=== PATIENT | male | born 1955 ===

== ENCOUNTER 2021-12-16 20:41 | Emergency (ER) | payer MEDICARE ==
--- NOTE | 2021-12-16 22:22 | Emergency Department Report ---
HPI - HPI HPI: [place] [address] The patient is a 66-year-old male present with a chief complaint of "I was feeling bad" (spoken in Mosotho). The patient acknowledges he has some substernal chest pain this morning intermittently for the past 6 hours. The patient states the pain will come on when he drinks. Patient denied having shortness of breath nausea or vomiting. The patient states his symptoms have since resolved after lasting 6 hours and is currently asymptomatic <HAYLIE BORJAS - Last Filed: 12/17/21 03:01> <EVANGELIST CALVILLO - Last Filed: 12/17/21 12:42> - General Time Seen by Provider: 12/16/21 22:03 ED Past Medical Hx - Past Medical History Previous Medical History?: No - Surgical History Hx Appendectomy: Yes - Family History Family history: no significant - Social History Smoking Status: Current Every Day Smoker (1/2 pack per) Substance Use Type: None (Denies illicit drug use), Alcohol (5-6 beers daily) <HAYLIE BORJAS - Last Filed: 12/17/21 03:01> <EVANGELIST CALVILLO - Last Filed: 12/17/21 12:42> - Medications Home Medications: Home Medications Medication Instructions Recorded Confirmed Last Taken Type Albuterol Sulfate [Proair 90 mcg IH Q4HR PRN #2 aer.pow.ba 12/17/21 Unknown Rx Respiclick] DOXYCYCLINE Hyclate [Vibramycin] 100 mg PO Q12HR #14 capsule 12/17/21 Unknown Rx Multivitamin with Folic Acid [[facility]vs 400 mcg PO QDAY #30 tablet 12/17/21 Unknown Rx One Daily Essential Tablet] chlordiazePOXIDE [Librium] 25 mg PO Q6H PRN #25 capsule 12/17/21 Unknown Rx ED Review of Systems ROS: Stated complaint: BODY PAIN/BODY ACHES Other details as noted in HPI Constitutional: no symptoms reported Eyes: denies: eye pain ENT: denies: throat pain Respiratory: denies: shortness of breath Cardiovascular: chest pain Endocrine: no symptoms reported Gastrointestinal: denies: nausea, vomiting Genitourinary: denies: dysuria Musculoskeletal: denies: back pain Neurological: denies: headache <HAYLIE BORJAS - Last Filed: 12/17/21 03:01> ROS: Stated complaint: BODY PAIN/BODY ACHES Other details as noted in HPI <EVANGELIST CALVILLO - Last Filed: 12/17/21 12:42> Physical Exam - Physical Exam Physical Exam: GENERAL: The patient is well-developed well-nourished male sleeping on stretcher not appearing to be in acute distress. Easily awakened HEENT: Normocephalic. Atraumatic. Extraocular motions are intact. Patient has moist mucous membranes. NECK: Supple. Trachea midline CHEST/LUNGS: Clear to auscultation. There is no respiratory distress noted. HEART/CARDIOVASCULAR: Regular. There is no tachycardia. There is no gallop rub or murmur. ABDOMEN: Abdomen is soft, nontender. Patient has normal bowel sounds. There is no abdominal distention. SKIN: There is no rash. There is no edema. There is no diaphoresis. NEURO: The patient is awake, alert, and oriented. The patient is cooperative. The patient has no focal neurologic deficits. The patient has normal speech. GCS 15 MUSCULOSKELETAL:There is no evidence of acute injury. <HAYLIE BORJAS - Last Filed: 12/17/21 03:01> - Physical Exam Vital Signs: Vital Signs 12/16/21 23:59 Temperature 97.5 F L Pulse Rate 91 H Respiratory 20 Rate Blood Pressure 122/70 [Right] O2 Sat by Pulse 97 Oximetry <EVANGELIST CALVILLO - Last Filed: 12/17/21 12:42> ED Course Vital Signs 12/16/21 23:59 Temperature 97.5 F L Pulse Rate 91 H Respiratory 20 Rate Blood Pressure 122/70 [Right] O2 Sat by Pulse 97 Oximetry - Reevaluation(s) Reevaluation #1: 12/17/21 08:31 Patient seen and examined. Ambulatory with a steady gait. Clinically sober. Ruled out for PE and myocardial infarction. Discharged with albuterol, antibiotics, multivitamins, as needed Librium, return precautions are reviewed. <RAJINDEREVANGELIST - Last Filed: 12/17/21 12:42> ED Medical Decision Making - Lab Data Result diagrams: 12/16/21 22:20 12/16/21 22:20 Laboratory Tests 12/16/21 12/16/21 12/16/21 22:20 22:20 22:20 WBC 5.9 RBC 4.23 Hgb 15.3 H Hct 45.7 H MCV 108 H MCH 36 H MCHC 34 RDW 14.7 Plt Count 248 Lymph % (Auto) 29.1 [place] % (Auto) 8.7 H Eos % (Auto) 1.8 Baso % (Auto) 1.6 Lymph # (Auto) 1.7 [place] # (Auto) 0.5 Eos # (Auto) 0.1 Baso # (Auto) 0.1 Seg Neutrophils % 58.8 Seg Neutrophils # 3.5 D-Dimer 652.22 H Sodium 141 Potassium 4.0 Chloride 99.2 Carbon Dioxide 24 Anion Gap 22 BUN 6 L Creatinine 0.7 L Estimated GFR > 60 BUN/Creatinine Ratio 9 Glucose 85 Calcium 9.4 Total Creatine Kinase 57 CK-MB (CK-2) 1.3 CK-MB (CK-2) Rel Index 2.2 Troponin T < 0.010 NT-Pro-B Natriuret Pep 131.4 Lipase Plasma/Serum Alcohol 12/16/21 12/16/21 12/17/21 22:20 22:25 01:45 WBC RBC Hgb Hct MCV MCH MCHC RDW Plt Count Lymph % (Auto) [place] % (Auto) Eos % (Auto) Baso % (Auto) Lymph # (Auto) [place] # (Auto) Eos # (Auto) Baso # (Auto) Seg Neutrophils % Seg Neutrophils # D-Dimer Sodium Potassium Chloride Carbon Dioxide Anion Gap BUN Creatinine Estimated GFR BUN/Creatinine Ratio Glucose Calcium Total Creatine Kinase CK-MB (CK-2) CK-MB (CK-2) Rel Index Troponin T < 0.010 NT-Pro-B Natriuret Pep Lipase 56 Plasma/Serum Alcohol 0.31 H - Radiology Data Radiology results: report reviewed (CT chest), image reviewed (CT chest) [address] [address] Cat Scan Report Signed Patient: ARIEL NGUYEN MR#: [id number] 3 : 1955 Acct:[id number] Age/Sex: 66 / M ADM Date: 12/16/21 Loc: ED Attending Dr: Ordering Physician: HAYLIE BORJAS MD Date of Service: 12/17/21 Procedure(s): CT angio chest Accession Number(s): [id number] cc: HAYLIE BORJAS MD CT angio chest INDICATION / CLINICAL INFORMATION: Substernal chest pain x 6 hours. TECHNIQUE: Axial CT images were obtained through the chest after injection of 100 cc of Omnipaque 350 IV contrast. 3 plane MIP and/or 3D reconstructions were produced. All CT scans at this location are performed using CT dose reduction for ALARA by means of automated exposure control. COMPARISON: None available. FINDINGS: PULMONARY ARTERIES: No central or segmental pulmonary embolus. THORACIC AORTA: Mild atherosclerotic calcification without acute abnormality. HEART: No significant abnormality. CORONARY ARTERY CALCIFICATION: No significant calcification. LYMPHADENOPATHY: No significant thoracic lymphadenopathy. LUNGS/PLEURA: Mild scattered bronchial wall thickening. Mild scattered tree-in-bud opacities within the medial right upper lobe, right middle lobe, and right lower lobe. Left lung is clear. There is mild/moderate emphysema. No pleural effusion or pneumothorax. OTHER FINDINGS: Small hiatal hernia. UPPER ABDOMEN: Hepatic steatosis. No acute findings in the upper abdomen. SKELETAL SYSTEM: No acute osseous findings. IMPRESSION: 1. No evidence of pulmonary embolism. 2. Mild scattered bronchial wall thickening with scattered tree-in-bud opacities throughout the right lung. Findings are most consistent with acute lower airway disease/bronchitis. No focal consolidative pneumonia. 3. Other incidental findings as above. Signer Name: Champ Do MD Signed: 12/17/2021 1:00 AM Workstation Name: [id number] Transcribed By: Dictated By: CHAMP DO MD Electronically Authenticated By: CHAMP DO MD Signed Date/Time: 12/17/21 0100 DD/ 0056 TD/TT: - Differential Diagnosis GERD, anxiety, ACS, PE, pericarditis, pancreatitis <HAYLIE BORJAS - Last Filed: 12/17/21 03:01> - Lab Data Result diagrams: 12/16/21 22:20 12/16/21 22:20 - EKG Data -: EKG Interpreted by Tn EKG shows normal: sinus rhythm Rate: normal - EKG Data When compared to previous EKG there are: previous EKG unavailable 12/17/21 12:41 The EKG is interpreted at 12: 32 Sinus rhythm, 92 bpm. Normal axis, normal P wave axis, minimal motion artifact, QTC 4 7 3 ms. Abnormal EKG. Not a STEMI <EVANGELIST CALVILLO - Last Filed: 12/17/21 12:42> Critical care attestation.: If time is entered above; I have spent that time in minutes in the direct care of this critically ill patient, excluding procedure time. <HAYLIE BORJAS - Last Filed: 12/17/21 03:01> Critical care attestation.: If time is entered above; I have spent that time in minutes in the direct care of this critically ill patient, excluding procedure time. <EVANGELIST CALVILLO - Last Filed: 12/17/21 12:42> ED Disposition <LE BORJASKE Selene - Last Filed: 12/17/21 03:01> Is pt being admited?: No Does the pt Need Aspirin: No <EVANGELIST CALVILLO - Last Filed: 12/17/21 12:42> Clinical Impression: Atypical chest pain, Alcohol intoxication Disposition: 01 HOME / SELF CARE / HOMELESS Condition: Good Instructions: Nonspecific Chest Pain, Adult Additional Instructions: Avoid consumption of alcohol, tobacco and smoke products. Patient may take [id number] Tylenol, ibuprofen, Protonix or Pepcid as needed for nonspecific chest pain. Take the antibiotics as directed, multivitamins as directed, albuterol as needed, and use the Librium as needed for sensation of alcohol withdrawal and shakes. Recommend follow-up with a primary care doctor or manager specialty within the next 3 to 5 days. Please return to the emergency room right away with new pain, worsened pain, migration of pain, projectile vomiting, change in mental status, confusion, inability tolerate liquid feeds, new, worsened or different symptoms not present on the initial emergency room evaluation Do not drive or operate motor vehicles until primary care doctor or manager specialty instructed that you are cleared to drive or operate motor vehicles. Long-term consumption of alcohol and smoke products may cause addiction, , disability, paralysis, loss of quality of life. Prescriptions: Multivitamin with Folic Acid [[facility]vs One Daily Essential Tablet] 400 mcg PO QDAY #30 tablet chlordiazePOXIDE [Librium] 25 mg PO Q6H PRN #25 capsule PRN Reason: Alcohol Withdrawal Albuterol Sulfate [Proair Respiclick] 90 mcg IH Q4HR PRN #2 aer.pow.ba PRN Reason: Wheezing DOXYCYCLINE Hyclate [Vibramycin] 100 mg PO Q12HR #14 capsule Referrals: [facility] [Provider Group] - 3-5 Days [facility] [Provider Group] - 3-5 Days Heart Score - HEART Score History: Slightly suspicious EKG: Normal Age: 45-65 Risk factors: 1-2 risk factors Troponin: < normal limit HEART Score: 2 <HAYLIE BORJAS - Last Filed: 12/17/21 03:01> - EKG Read Time Time EKG Completed: 12:32 EKG Read Time: 12:33 - Critical Actions Critical Actions: 0-3 pts:0.9-1.7%risk of adverse cardiac event.Candidate for discharge <EVANGELIST CALVILLO - Last Filed: 12/17/21 12:42>
[2021-12-16 23:26] LABS: Basophils # (Auto) 0.1 K/mm3 (0.0-0.1); Basophils % (Auto) 1.6 % (0.0-1.8); Eosinophils # (Auto) 0.1 K/mm3 (0.0-0.4); Eosinophils % (Auto) 1.8 % (0.0-4.3); Hematocrit 45.7 % (35.5-45.6); Hemoglobin 15.3 gm/dl (11.8-15.2); Lymphocytes # (Auto) 1.7 K/mm3 (1.2-5.4); Lymphocytes % (Auto) 29.1 % (13.4-35.0); Mean Corpuscular HGB Conc 34 % (32-34); Mean Corpuscular Volume 108 fl (84-94); Monocytes # (Auto) 0.5 K/mm3 (0.0-0.8); Monocytes % (Auto) 8.7 % (0.0-7.3); Platelet Count 248 K/mm3 (140-440); Red Blood Count 4.23 M/mm3 (3.65-5.03); Red Cell Distribution Width 14.7 % (13.2-15.2)
[2021-12-16 23:37] LABS: Creatine Kinase MB 1.3 ng/mL (0.0-4.0)
[2021-12-16 23:41] LABS: Blood Urea Nitrogen 6 mg/dL (9-20); Calcium 9.4 mg/dL (8.4-10.2); Hemolysis Index 6
[2021-12-17 00:03] LABS: BUN/Creatinine Ratio 9
--- NOTE | 2021-12-17 01:05 | Cat Scan Report ---
CT angio chest INDICATION / CLINICAL INFORMATION: Substernal chest pain x 6 hours. TECHNIQUE: Axial CT images were obtained through the chest after injection of 100 cc of Omnipaque 350 IV contrast. 3 plane MIP and/or 3D reconstructions were produced. All CT scans at this location are performed using CT dose reduction for ALARA by means of automated exposure control. COMPARISON: None available. FINDINGS: PULMONARY ARTERIES: No central or segmental pulmonary embolus. THORACIC AORTA: Mild atherosclerotic calcification without acute abnormality. HEART: No significant abnormality. CORONARY ARTERY CALCIFICATION: No significant calcification. LYMPHADENOPATHY: No significant thoracic lymphadenopathy. LUNGS/PLEURA: Mild scattered bronchial wall thickening. Mild scattered tree-in-bud opacities within t he medial right upper lobe, right middle lobe, and right lower lobe. Left lung is clear. There is mil d/moderate emphysema. No pleural effusion or pneumothorax. OTHER FINDINGS: Small hiatal hernia. UPPER ABDOMEN: Hepatic steatosis. No acute findings in the upper abdomen. SKELETAL SYSTEM: No acute osseous findings. IMPRESSION: 1. No evidence of pulmonary embolism. 2. Mild scattered bronchial wall thickening with scattered tree-in-bud opacities throughout the right lung. Findings are most consistent with acute lower airway disease/bronchitis. No focal consolidativ e pneumonia. 3. Other incidental findings as above. Signer Name: Jose Do MD Signed: 12/17/2021 1:00 AM Workstation Name: [id number]
[2021-12-17] MEDS ORDERED: THIAMINE 100 MG, FOLIC ACID 1 MG, MULTIPLE VITAMIN INJ, ADULT 10 ML in SODIUM CHLORIDE ... IV ONE (02:00)
[2021-12-17] MEDS ORDERED: MAGNESIUM SULFATE 2 GM/50 ML BAG IV ONE (02:00)
[2021-12-17 17:36] VITALS: BP 128/77
--- NOTE | 2021-12-18 10:09 | Electrocardiograph Report ---
[facility] Test Date: 2021-12-17 Test Time: 12:32:23 Pat Name: ARIEL NGUYEN Department: Room: Gender: M [employer]: PHILLY : 1955 Requested By: HAYLIE BORJAS Order Number: [id number] Reading MD: Maximus Kimbrough Measurements Intervals [place] Rate: 92 P: 81 KS: 143 QRS: 69 QRSD: 78 T: 75 QT: 382 QTc: 473 Interpretive Statements Sinus rhythm No previous ECG available for comparison Electronically Signed On 12-18-2021 10:08:57 EDT by aMximus Kimbrough
== END 2021-12-17 17:36 | disposition home or self-care (01) ==
LOC: ED 20:41
DX: R07.9 Chest pain, unspecified (principal); F10.129 Alcohol abuse with intoxication, unspecified; Z98.890 Other specified postprocedural states; F17.200 Nicotine dependence, unspecified, uncomplicated
CPT/HCPCS: 36415; 71275; 80048; 82550; 82553; 83690; 83880; 84484; 85025; 85379; 93005; 96365; 96366; 99284; J3411; J3490; J7030; Q9967; 80320; 96374; G0480